=== PATIENT | female | born 2000 | race Hispanic/Latino ===

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

== ENCOUNTER 2023-04-24 13:13 | Emergency (ER) | payer OTHER ==
[~2023-04-24] VITALS: Ht 154.9 cm; Wt 63.5 kg
[2023-04-24] MEDS ORDERED: DEXAMETHASONE SOD PHOSPHATE 4 MG/ML 1ML VIAL IM ONE (14:00)
[2023-04-24] MEDS ORDERED: METH4TAB3 PO (15:54)
[2023-04-24] MEDS ORDERED: BENZ-39 PO (15:54)
[2023-04-24] MEDS ORDERED: IBUP-2070 PO (15:54)
[2023-04-24 16:06] VITALS: BP 126/78; PULSE 70; RESP 18; O2SAT 99
== END 2023-04-24 16:07 | disposition home or self-care (01) ==
LOC: EDH 13:13
DX: U07.1 COVID-19 (principal); M94.0 Chondrocostal junction syndrome [Tietze]; Z90.49 Acquired absence of other specified parts of digestive tract
CPT/HCPCS: 99284; 71045; 87426; 96372; J1100